=== PATIENT | female | born 1975 | race Two or more races ===

== ENCOUNTER 2017-10-15 10:51 | Emergency (ER) | payer MEDICAID, SELFPAY ==
[~2017-10-15] VITALS: Ht 160 cm; Wt 81.6 kg
[~2017-10-15 10:51] MED LIST: AMOXICILLIN500 MG ORAL; NKM; ONDANSETRON ODT4 MG PO; PERCOCET 5-3251 EACH PO
[2017-10-15] MEDS ORDERED: NKM (11:03)
[2017-10-15 11:12] VITALS: BP 177/98
[2017-10-15 11:25] LABS: APPEARANCE,URINE CLEAR; KETONES,URINE NEGATIVE (NEGATIVE); LEUKOCYTE ESTERASE ,URINE NEGATIVE (NEGATIVE); NITRITE,URINE NEGATIVE (NEGATIVE); PH,URINE 7 (4.5-8.0); PROTEIN,URINE 1+ (NEGATIVE); UROBILINOGEN,URINE NORMAL MG/DL (0.0-1.0)
--- NOTE | 2017-10-15 11:30 | Emergency Room Report ---
History of Present Illness General Chief Complaint: Back Pain-No Injury Source: Patient Present Illness HPI 41-year-old female no significant past medical history presents with 2 days of bilateral back pain, worse with movement, no numbness or tingling of legs. Patient states that she has intermittent chronic back pain for years. Also states that she has one day of dysuria, frequency, urgency. Subjective fevers. States that she gets a UTI about once every 2 years. No urinary retention, no history of IV drug abuse, no worry for STD as patient is monogamous for many years with one partner. No abnormal vaginal discharge Allergies: Coded Allergies: No Known Allergies (Unverified , 12/30/12) Patient History Past Medical History: see triage record Past Surgical History: none Pertinent Family History: none Now: No Reviewed Nursing Documentation: PMH: Agreed, PSxH: Agreed Nursing Documentation-PMH Past Medical History: No Stated History Review of Systems All Other Systems: negative except mentioned in HPI Physical Exam Vital Signs Date Time Temp Pulse Resp B/P (MAP) Pulse Ox O2 Delivery O2 Flow Rate FiO2 10/15/17 10:55 99.9 103 20 177/98 100 Room Air Sp02 EP Interpretation: reviewed, normal General Appearance: alert, GCS 15, non-toxic, mild distress Head: normocephalic, atraumatic Eyes: bilateral eye normal inspection, bilateral eye PERRL, bilateral eye EOMI ENT: normal ENT inspection, normal pharynx, normal voice, moist mucus membranes Neck: normal inspection, full range of motion, supple Respiratory: normal inspection, lungs clear, normal breath sounds, no respiratory distress, no retraction, no wheezing, speaking full sentences, chest symmetrical Cardiovascular #1: normal inspection, regular rate, rhythm, no edema, normal capillary refill Cardiovascular #2: 2+ radial (R), 2+ radial (L) Gastrointestinal: normal inspection, non tender, soft, non-distended, no guarding Genitourinary: no CVA tenderness Musculoskeletal: other - Bilateral paraspinal lower lumbar tenderness, no midline tenderness, full range of motion of all extremities Neurologic: normal inspection, alert, oriented x3, responsive, motor strength/ tone normal, sensory intact, normal gait, speech normal Psychiatric: normal inspection, judgement/insight normal, memory normal Skin: normal inspection, normal color, no rash, warm/dry, well hydrated, normal turgor Medical Decision Making Diagnostic Impression: Primary Impression: Back pain Additional Impression: UTI (urinary tract infection) ER Course 41-year-old female 2 days of back pain One-day dysuria DDX: Likely musculoskeletal back pain vs. muscular strain vs. sciatica Versus UTI/pyelo- Lumbar fracture is unlikely given patients age, no midline tenderness, no history of trauma, and that patient is ambulatory. Therefore, at this time no imaging is indicated Serious diagnoses such as cord compression, epidural abscess is unlikely in this patient given the clinical scenario and abscess of neurological symptoms or findings. Patient appears nontoxic. Plan: Motrin or Tylenol offered, however patient states that she does not want to take medicine as she has taken too much medicine. Will perform a UA Abdomen is very soft nontender ER course: Patient has remained nontoxic appearing and ambulatory in the ED. ua with occasional bacteria -- pt symptomatic will give abx ambulatory in ED Disposition: Patient will be discharged to home with prescription of macrobid and robaxin. Patient cautioned of the effects of robaxin including possible impairment of physical or mental abilities. Patient was instructed to refrain from operating machinery or driving. Patient is also cautioned on the GI effects of motrin and to take sparingly. Patient verbalized understanding. Strict precautions discussed with patient on when to emergently return to the ED which includes severe/worsening back pain, leg weakness/numbness, urinary retention/incontinence, fever or chills, which may indicate severe illness. Patient is to follow up with their PMD within 5 days. Patient agrees with plan. Please note that this Emergency Department Report was dictated using [employer] assistant technology software, occasionally this can lead to erroneous entry secondary to interpretation by the dictation equipment. Laboratory Tests Test 10/15/17 11:10 Urine Color Pale yellow Urine Appearance Clear Urine pH 7 (4.5-8.0) Urine Specific [place] 1.005 (1.005-1.035) Urine Protein 1+ (NEGATIVE) H Urine Glucose (UA) Negative (NEGATIVE) Urine Ketones Negative (NEGATIVE) Urine Occult Blood Negative (NEGATIVE) Urine Nitrite Negative (NEGATIVE) Urine Bilirubin Negative (NEGATIVE) Urine Urobilinogen Normal MG/DL (0.0-1.0) Urine Leukocyte Esterase Negative (NEGATIVE) Urine RBC 0-2 /HPF (0 - 2) Urine WBC 0-2 /HPF (0 - 2) Urine Squamous Epithelial Cells Occasional /LPF Urine Bacteria Occasional /HPF (NONE) Urine HCG, Qualitative Negative Last Vital Signs Date Time Temp Pulse Resp B/P (MAP) Pulse Ox O2 Delivery O2 Flow Rate FiO2 10/15/17 11:12 100.4 100 20 177/98 100 Room Air Disposition: HOME, SELF-CARE Condition: Improved Scripts Nitrofurantoin Monohyd/M-Cryst* (MACROBID 100 MG*) 100 Mg Capsule 100 MG ORAL EVERY 12 HOURS for 7 Days, #21 CAP 0 Refills Prov: Kenisha Quintero M.D. 10/15/17 Methocarbamol* (ROBAXIN-750*) 750 Mg Tablet 750 MG PO QID, #28 TAB 0 Refills Prov: Kenisha Quintero M.D. 10/15/17 Referrals: NOT CHOSEN MARQUISE/,REFERRING (PCP) Kenisha Quintero M.D. Oct 15, 2017 11:30
[2017-10-15 11:36] LABS: BACTERIA,URINE OCCASIONAL /HPF; RBC,URINE 0-2 /HPF (0 - 2); SQUAMOUS EPITHELIAL CELL,UR OCCASIONAL /LPF (NONE/OCC); WBC,URINE 0-2 /HPF (0 - 2)
[2017-10-15] MEDS ORDERED: ROBAXIN-750750 MG PO (12:27)
[2017-10-15] MEDS ORDERED: NITROFURANTOIN100 M2 ORAL (12:27)
[2017-10-15 13:00] VITALS: BP 175/98
== END 2017-10-15 13:00 | disposition home or self-care (01) ==
LOC: EDBD 11:10 → EMR 11:10
DX: N39.0 Urinary tract infection, site not specified (principal)
CPT/HCPCS: 81003; 81025; 99284